=== PATIENT | male | born 1930 | race Caucasian/White ===

== ENCOUNTER 2017-10-14 16:35 | Inpatient (IN) | payer MEDICARE, OTHER ==
[2017-10-14] MEDS ORDERED: LORazepam 2 MG/ML SDV IVPUSH ONE ×2 (22:15→22:34)
[2017-10-14] MEDS ORDERED: LORazepam 2 MG/ML SDV ONE (22:21)
--- NOTE | 2017-10-14 22:26 | EDM.PDOC ---
<Wil Avery - Last Filed: 10/14/17 23:27> ED HPI GENERAL MEDICAL PROBLEM - General Chief Complaint: Upper Extremity Injury/Pain Stated Complaint: [facility] Time Seen by Provider: 10/14/17 17:50 - History of Present Illness INITIAL COMMENTS - FREE TEXT/NARRATIVE: 87-year-old male presents emergency room with a left hand injury. Patient fell while bathing at the assisted living center. He has a few scrapes on his hands but really denies significant discomfort. Patient denies any other pain at this time and he has no other complaints. It was learned after his hand was x-rayed and I was considering sending him back to the assisted living center, that he has fallen 4 times the last week and becoming much more confused. No other information is noted at this time about this change of events over the last week. - Related Data Allergies Allergy/AdvReac Type Severity Reaction Status Date / Time No Known Allergies Allergy Verified 10/14/17 16:41 Home Meds: Home Meds Atenolol 25 mg PO QPM 07/25/14 [History] Hydrochlorothiazide 50 mg PO DAILY 07/25/14 [History] Sertraline HCl 100 mg PO DAILY 07/25/14 [History] Simvastatin [Zocor] 40 mg PO QPM 07/25/14 [History] Acetaminophen [Tylenol] 650 mg PO BID 10/14/17 [History] Apixaban [Eliquis] 2.5 mg PO BID 10/14/17 [History] Aspirin [Ecotrin] 81 mg PO DAILY 10/14/17 [History] Docusate Sodium 100 mg PO BID 10/14/17 [History] Ergocalciferol (Vitamin D2) [Vitamin D2] 50,000 unit PO ASDIRECTED 10/14/17 [ History] Past Medical History Cardiovascular History: Reports: Afib, High Cholesterol, Hypertension, Pacemaker , Other (See Below) Other Cardiovascular History: sick sinus syndrome Genitourinary History: Reports: BPH Endocrine/Metabolic History: Reports: Diabetes, Type II Social & Family History - Tobacco Use Smoking Status *Q: Never Smoker Second Hand Smoke Exposure: No - Alcohol Use Days Per Week of Alcohol Use: 2 Number of Drinks Per Day: 2 Total Drinks Per Week: 4 - Recreational Drug Use Recreational Drug Use: No Review of Systems - Review of Systems Review Of Systems: See Below Constitutional: Denies: Chills, Fever Eyes: Reports: No Symptoms Ears: Reports: No Symptoms, Other (He uses hearing aids) Nose: Reports: No Symptoms Mouth/Throat: Reports: No Symptoms Respiratory: Reports: No Symptoms. Denies: Cough Cardiovascular: Reports: No Symptoms. Denies: Chest Pain GI/Abdominal: Reports: No Symptoms. Denies: Abdominal Pain, Decreased Appetite , Diarrhea, Nausea, Vomiting Genitourinary: Denies: No Symptoms Musculoskeletal: Denies: No Symptoms Skin: Denies: No Symptoms Neurological: Reports: Confusion. Denies: Headache, Tingling, Trouble Speaking , Weakness, Change in Speech Psychiatric: Reports: Confusion ED EXAM, GENERAL - Physical Exam Exam: See Below Exam Limited By: No Limitations General Appearance: Alert, No Apparent Distress Eye Exam: Bilateral Eye: Normal Inspection, PERRL Ears: Normal External Exam, Other (Hearing aids in place) Nose: Normal Inspection, Normal Mucosa Throat/Mouth: Normal Inspection, Normal Lips, Normal Teeth, Normal Gums, Normal Oropharynx, Normal Voice, No Airway Compromise, Other (He is missing some of his teeth but what he has remaining appears to be fairly healthy) Head: Atraumatic, Normocephalic Neck: Normal Inspection, Supple, Non-Tender, Full Range of Motion. No: Lymphadenopathy (L), Lymphadenopathy (R) Respiratory/Chest: No Respiratory Distress, Lungs Clear, Decreased Breath Sounds (Especially in the lung bases). No: Normal Breath Sounds Cardiovascular: Regular Rate, Rhythm, Systolic Murmur (A murmur heard along the left lower sternal border). No: No Edema, No Murmur GI/Abdominal: Normal Bowel Sounds, Soft, No Distention, Tender (He has some vague discomfort in the suprapubic region). No: Guarding, Rigid, Rebound Extremities: Normal Inspection Neurological: Alert EKG INTERPRETATION EKG Date: 10/14/17 Rhythm: Other (Ventricular paced rhythm rate 60) QRS: Other (Ventricular paced rhythm with wide complex QRS) ST-T: Other (Normal ST elevation and depression with a ventricular paced rhythm) QT: Prolonged EKG Interpretation Comments: Abnormal Course - Vital Signs Last Recorded V/S: Last Vital Signs Temp 96.3 F 10/14/17 16:42 Pulse 65 10/14/17 16:42 Resp 20 01/06/18 16:42 BP 130/68 10/14/17 16:42 Pulse Ox 93 L 10/14/17 16:42 - Orders/Labs/Meds Orders: Active Orders 24 hr Category Date Time Status EKG Documentation Completion [RC] STAT Care 10/14/17 20:20 Active Chest 1V Frontal [CR] Stat Exams 10/14/17 20:19 Taken Chest wo Cont [CT] Stat Exams 10/14/17 22:36 Taken Hand Comp Min 3V Lt [CR] Stat Exams 10/14/17 18:40 Taken Head wo Cont [CT] Stat Exams 10/14/17 20:12 Taken KUB [Abdomen 1V Flat] [CR] Stat Exams 10/14/17 20:43 Taken Labs: Laboratory Tests 10/14/17 10/14/17 10/14/17 Range/Units 20:00 20:00 20:00 WBC 6.95 (4.23-9.07) K/mm3 RBC 3.99 L (4.63-6.08) M/mm3 Hgb 13.1 L (13.7-17.5) gm/L Hct 39.5 L (40.1-51.0) % MCV 99.0 H (79.0-92.2) fl MCH 32.8 H (25.7-32.2) pg MCHC 33.2 (32.2-35.5) g/dl RDW Std Deviation 57.1 H (35.1-43.9) fL Plt Count 135 L (163-337) K/mm3 MPV 9.4 (9.4-12.3) fl Neutrophils % (Manual) 60 (40-60) % Band Neutrophils % 0 (0-10) % Lymphocytes % (Manual) 36 (20-40) % Atypical Lymphs % 0 % Monocytes % (Manual) 3 (2-10) % Eosinophils % (Manual) 0 L (0.8-7.0) % Basophils % (Manual) 1 (0.2-1.2) Platelet Estimate Adequate RBC Morph Comment Normal Sodium 140 (136-145) mEq/L Potassium 3.1 L (3.5-5.1) mEq/L Chloride 103 (98-107) mEq/L Carbon Dioxide 27 (21-32) mEq/L Anion Gap 13.1 (5-15) BUN 22 H (7-18) mg/dL Creatinine 1.0 (0.7-1.3) mg/dL Est Cr Clr Drug Dosing 46.82 mL/min Estimated GFR (MDRD) > 60 (>60) mL/min BUN/Creatinine Ratio 22.0 H (14-18) Glucose 116 H (83-115) mg/dL Calcium 8.6 (8.5-10.1) mg/dL Total Bilirubin 1.5 H (0.2-1.0) mg/dL AST 34 (15-37) U/L ALT 20 (16-63) U/L Alkaline Phosphatase 160 H (46-116) U/L Troponin I < 0.017 (0.00-0.056) ng/mL Total Protein 6.9 (6.4-8.2) g/dl Albumin 3.1 L (3.4-5.0) g/dl Globulin 3.8 gm/dL Albumin/Globulin Ratio 0.8 L (1-2) Urine Color (Yellow) Urine Appearance (Clear) Urine pH (5.0-8.0) Ur Specific Gentry (1.005-1.030) Urine Protein (Negative) Urine Glucose (UA) (Negative) Urine Ketones (Negative) Urine Occult Blood (Negative) Urine Nitrite (Negative) Urine Bilirubin (Negative) Urine Urobilinogen (0.2-1.0) Ur Leukocyte Esterase (Negative) Urine RBC (0-5) /hpf Urine WBC (0-5) /hpf Ur Epithelial Cells (0-5) /hpf Urine Bacteria (FEW) /hpf Hyaline Casts (0-5) /lpf Urine Mucus (FEW) /hpf 10/14/17 Range/Units 22:00 WBC (4.23-9.07) K/mm3 RBC (4.63-6.08) M/mm3 Hgb (13.7-17.5) gm/L Hct (40.1-51.0) % MCV (79.0-92.2) fl MCH (25.7-32.2) pg MCHC (32.2-35.5) g/dl RDW Std Deviation (35.1-43.9) fL Plt Count (163-337) K/mm3 MPV (9.4-12.3) fl Neutrophils % (Manual) (40-60) % Band Neutrophils % (0-10) % Lymphocytes % (Manual) (20-40) % Atypical Lymphs % % Monocytes % (Manual) (2-10) % Eosinophils % (Manual) (0.8-7.0) % Basophils % (Manual) (0.2-1.2) Platelet Estimate RBC Morph Comment Sodium (136-145) mEq/L Potassium (3.5-5.1) mEq/L Chloride (98-107) mEq/L Carbon Dioxide (21-32) mEq/L Anion Gap (5-15) BUN (7-18) mg/dL Creatinine (0.7-1.3) mg/dL Est Cr Clr Drug Dosing mL/min Estimated GFR (MDRD) (>60) mL/min BUN/Creatinine Ratio (14-18) Glucose (83-115) mg/dL Calcium (8.5-10.1) mg/dL Total Bilirubin (0.2-1.0) mg/dL AST (15-37) U/L ALT (16-63) U/L Alkaline Phosphatase (46-116) U/L Troponin I (0.00-0.056) ng/mL Total Protein (6.4-8.2) g/dl Albumin (3.4-5.0) g/dl Globulin gm/dL Albumin/Globulin Ratio (1-2) Urine Color Yellow (Yellow) Urine Appearance Clear (Clear) Urine pH 5.5 (5.0-8.0) Ur Specific Gentry 1.020 (1.005-1.030) Urine Protein Negative (Negative) Urine Glucose (UA) Negative (Negative) Urine Ketones Negative (Negative) Urine Occult Blood 2+ H (Negative) Urine Nitrite Negative (Negative) Urine Bilirubin Negative (Negative) Urine Urobilinogen 1.0 (0.2-1.0) Ur Leukocyte Esterase Negative (Negative) Urine RBC 0-5 (0-5) /hpf Urine WBC 0-5 (0-5) /hpf Ur Epithelial Cells 0-5 (0-5) /hpf Urine Bacteria Few (FEW) /hpf Hyaline Casts 0-5 (0-5) /lpf Urine Mucus Not seen (FEW) /hpf Meds: Medications Discontinued Medications Generic Name Dose Route Start Last Admin Trade Name Freq PRN Reason Stop Dose Admin Lorazepam 0.25 mg 10/14/17 22:15 10/14/17 22:19 Ativan IVPUSH 10/14/17 22:16 0.25 mg ONETIME ONE Administration Lorazepam Confirm 10/14/17 22:21 10/14/17 22:20 Ativan Administered 10/14/17 22:22 Not Given Dose 2 mg .ROUTE .STK-MED ONE Lorazepam 0.25 mg 10/14/17 22:34 10/14/17 22:38 Ativan IVPUSH 10/14/17 22:35 0.25 mg ONETIME ONE Administration - Re-Assessments/Exams Free Text/Narrative Re-Assessment/Exam: 10/14/17 22:24 Patient has become agitated this evening here in the emergency room will give him a quarter milligram of Ativan and repeat if needed his hand x-ray is negative for acute fracture or dislocation abdominal x-ray shows no acute changes normal stool in bowel pattern chest x-ray shows multilevel right-sided pleural effusion and marked cardiomegaly troponin negative he is mildly prerenal. 10/14/17 23:27 Analysis is nonsuggestive of infectious process Departure - Departure Disposition: Admitted As Inpatient 64 Clinical Impression: Confusion state, Pleural effusion, right, Cardiomegaly, Multiple falls Contusion of left hand Qualifiers: Encounter type: initial encounter Qualified Code(s): S60.222A - Contusion of left hand, initial encounter Blood in urine Qualifiers: Hematuria type: gross Qualified Code(s): R31.0 - Gross hematuria - Discharge Information Referrals: PCP,Unknown [Primary Care Provider] - Additional Instructions: I spoke to Dr. Houston she will admit the patient for further evaluation and treatment <Gus Lamas - Last Filed: 10/15/17 03:43> Course - Re-Assessments/Exams Free Text/Narrative Re-Assessment/Exam: 10/15/17 03:35 CT of the chest shows a moderate pleural effusion and cardiomegaly but no other acute changes. 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 10/15/17 03:[address] Houston regarding the patient due to his confusion and his multiple falls he is not a candidate to go back to [facility] assisted living. She is willing to admit him to the hospital for further evaluation and treatment and placement. Departure - Departure Time of Disposition: 03:37 Condition: Poor ED Communication - ED Communication Date/Time Date: 10/15/17 Time Called: 03:43 - Discussed Case With (1) Discussed Case With (1): Admitting Provider Person/s Notified (1): Ni Houston (She will admit)
[2017-10-15] MEDS ORDERED: LORazepam 2 MG/ML SDV IVPUSH PRN (04:45)
[2017-10-15] MEDS ORDERED: Sodium Chloride 0.9% 1,000 ML IV SCH (05:00)
--- NOTE | 2017-10-15 09:58 | PCM.HP ---
H&P History of Present Illness - General Date of Service: 10/15/17 Admit Problem/Dx: Admission Diagnosis/Problem Admission Diagnosis/Problem Confusion Source of Information: Provider History Limitations: Reports: No Limitations - History of Present Illness Initial Comments - Free Text/Narative: 87 year old male unknown MS, believed to have a history of dementia unspecified ; he presents with frequent falls with minor injuries LE/UE without fracture. There was no loss of consciousness; he has a cardiac history of sick sinus syndrome with pacemaker placement. He lives in assisted living, evaluation has been initiated to investigate acute mental status change; he may require SNF at [place]. Onset of Symptoms: Reports: Unknown/Unsure Symptom Onset Date: 10/14/17 Duration of Symptoms: Reports: Hour(s):, Getting Worse Location: Reports: Generalized Severity: Moderate Improves with: Reports: Medication Worsens with: Reports: None Associated Symptoms: Reports: Confusion - Related Data Allergies/Adverse Reactions: Allergies Allergy/AdvReac Type Severity Reaction Status Date / Time No Known Allergies Allergy Verified 10/14/17 16:41 Home Medications: Home Meds Atenolol 25 mg PO QPM 07/25/14 [History] Hydrochlorothiazide 50 mg PO DAILY 07/25/14 [History] Sertraline HCl 100 mg PO DAILY 07/25/14 [History] Simvastatin [Zocor] 40 mg PO QPM 07/25/14 [History] Acetaminophen [Tylenol] 650 mg PO BID 10/14/17 [History] Apixaban [Eliquis] 2.5 mg PO BID 10/14/17 [History] Aspirin [Ecotrin] 81 mg PO DAILY 10/14/17 [History] Ergocalciferol (Vitamin D2) [Vitamin D2] 50,000 unit PO ASDIRECTED 10/14/17 [ History] Acetaminophen [Tylenol] 650 mg PO Q4HR PRN 10/15/17 [History] Docusate Sodium 100 mg PO BID 10/15/17 [History] Past Medical History HEENT History: Reports: Hard of Hearing, Impaired Vision Cardiovascular History: Reports: Afib, High Cholesterol, Hypertension, Pacemaker , Other (See Below) Other Cardiovascular History: sick sinus syndrome Genitourinary History: Reports: BPH Endocrine/Metabolic History: Reports: Diabetes, Type II Social & Family History - Family History Family Medical History: Noncontributory - Tobacco Use Smoking Status *Q: Never Smoker Second Hand Smoke Exposure: No - Caffeine Use Caffeine Use: Reports: None - Alcohol Use Days Per Week of Alcohol Use: 2 Number of Drinks Per Day: 2 Total Drinks Per Week: 4 - Recreational Drug Use Recreational Drug Use: No H&P Review of Systems - Review of Systems: Review Of Systems: See Below General: Reports: Weakness HEENT: Reports: No Symptoms Pulmonary: Reports: No Symptoms Cardiovascular: Reports: No Symptoms Gastrointestinal: Reports: No Symptoms Genitourinary: Reports: No Symptoms Musculoskeletal: Reports: No Symptoms Skin: Reports: No Symptoms Psychiatric: Reports: Confusion Neurological: Reports: No Symptoms Hematologic/Lymphatic: Reports: No Symptoms Immunologic: Reports: No Symptoms Exam - Exam Exam: See Below - Vital Signs Vital Signs: Last Vital Signs Temp 36.5 C 10/15/17 07:52 Pulse 59 L 10/15/17 07:53 Resp 18 10/15/17 07:52 BP 123/56 L 10/15/17 07:53 Pulse Ox 98 10/15/17 07:53 Weight: 84.878 kg - Exam Quality Assessment: Supplemental Oxygen, DVT Prophylaxis General: Sedated HEENT: Pupils Equal, Pupils Reactive, PERRLA Neck: Trachea Midline Lungs: Normal Respiratory Effort Cardiovascular: Regular Rate, Regular Rhythm GI/Abdominal Exam: Normal Bowel Sounds, Soft, Non-Tender, No Organomegaly, No Distention (Male) Exam: Deferred Rectal (Males) Exam: Deferred Back Exam: Normal Inspection Extremities: Normal Inspection Skin: Warm Neurological: Cranial Nerves Intact Neuro Extensive - Motor, Sensory, Reflexes: CN II-XII Intact Psychiatric: Other (sedated) - Patient Data Lab Results Last 24 hrs: Laboratory Results - last 24 hr 10/15/17 10/15/17 10/15/17 Range/Units 06:25 06:25 06:30 WBC 6.97 (4.23-9.07) K/mm3 RBC 4.05 L (4.63-6.08) M/mm3 Hgb 13.2 L (13.7-17.5) gm/L Hct 40.7 (40.1-51.0) % MCV 100.5 H (79.0-92.2) fl MCH 32.6 H (25.7-32.2) pg MCHC 32.4 (32.2-35.5) g/dl RDW Std Deviation 58.7 H (35.1-43.9) fL Plt Count 137 L (163-337) K/mm3 MPV 9.4 (9.4-12.3) fl Sodium 142 (136-145) mEq/L Potassium 3.1 L (3.5-5.1) mEq/L Chloride 102 (98-107) mEq/L Carbon Dioxide 29 (21-32) mEq/L Anion Gap 14.1 (5-15) BUN 21 H (7-18) mg/dL Creatinine 1.1 (0.7-1.3) mg/dL Est Cr Clr Drug Dosing 42.56 mL/min Estimated GFR (MDRD) > 60 (>60) mL/min BUN/Creatinine Ratio 19.1 H (14-18) Glucose 105 (83-115) mg/dL Calcium 8.8 (8.5-10.1) mg/dL MRSA (PCR) Negative Result Diagrams: 10/15/17 06:25 10/15/17 06:25 *Q Meaningful Use (ADM) - VTE *Q VTE Criteria *Q: - Stroke *Q Stroke Criteria *Q: - AMI *Q AMI Criteria *Q: - Problem List (1) Blood in urine SNOMED Code(s): 55409328 ICD Code: R31.9 - HEMATURIA, UNSPECIFIED Status: Acute Current Visit: Yes Qualifiers: Hematuria type: gross Qualified Code(s): R31.0 - Gross hematuria (2) Confusion state SNOMED Code(s): 891820576 ICD Code: F44.89 - OTHER DISSOCIATIVE AND CONVERSION DISORDERS Status: Acute Current Visit: Yes (3) Contusion of left hand SNOMED Code(s): 3966952 ICD Code: S60.222A - CONTUSION OF LEFT HAND, INITIAL ENCOUNTER Status: Acute Current Visit: Yes Qualifiers: Encounter type: initial encounter Qualified Code(s): S60.222A - Contusion of left hand, initial encounter (4) Multiple falls SNOMED Code(s): 850044954 ICD Code: R29.6 - REPEATED FALLS Status: Acute Current Visit: Yes (5) Pleural effusion, right SNOMED Code(s): 51848200 ICD Code: J90 - PLEURAL EFFUSION, NOT ELSEWHERE CLASSIFIED Status: Acute Current Visit: Yes (6) Contusion of knee SNOMED Code(s): 11921131 ICD Code: S80.00XA - CONTUSION OF UNSPECIFIED KNEE, INITIAL ENCOUNTER Status: Acute Current Visit: No Problem List Initiated/Reviewed/Updated: Yes Orders Last 24hrs: Active Orders 24 hr Category Date Time Status Patient Status [ADT] Routine ADT 10/15/17 04:08 Active Bedrest [RC] ASDIRECTED Care 10/15/17 04:43 Active Urinary Catheter Assessment [RC] , Care 10/15/17 04:45 Active Soft Diet [DIET] Diet 10/15/17 Breakfast Active LORazepam [Ativan] Med 10/15/17 04:45 Active 0.5 mg IVPUSH Q4H PRN Sodium Chloride 0.9% [Normal Saline] 1,000 ml Med 10/15/17 05:00 Active IV ASDIRECTED Resuscitation Status Routine Resus Stat 10/15/17 04:42 Ordered Medication Orders Sodium Chloride (Normal Saline) 1,000 mls @ 100 mls/hr IV ASDIRECTED LAUREN Last Admin: 10/15/17 06:38 Dose: 100 mls/hr Lorazepam (Ativan) 0.5 mg IVPUSH Q4H PRN PRN Reason: Anxiety Assessment/Plan Comment:: Impression: Confusion, baseline unknown Query dementia Frequent falls of unclear etiology History of SN dysfunction(SSS) s/p PPM Hematuria, Hx of BPH Contusion of UE/LE without fracture s/p fall Right sided pleural effusion Chronic HTN HLD Diabetes Mellitus type II Plan: CTA post circ unable to perform MRA 2D echo MS telemetry Neuro checks Home meds Daily Labs Replace electrolytes DVT/GI prophylaxis SW consult PT/OT consult
--- NOTE | 2017-10-15 12:53 | CR ---
Chest: Portable view of the chest was obtained. Comparison: Prior chest x-ray of 07/27/14. Right sided pleural effusion is seen. Lungs otherwise are clear. Heart is enlarged. Pacemaker is noted. Bony structures are grossly intact. Impression: 1. Cardiomegaly and right-sided pleural effusion. Diagnostic code #3
--- NOTE | 2017-10-15 12:53 | CT ---
Head CT Technique: Multiple axial sections through the brain were obtained. Intravenous contrast was not utilized. Comparison: No prior head CT exam. Findings: Ventricles along with basal cisterns and sulci over the convexities are moderately prominent. Old infarct is noted within the posterior left frontal region extending into the upper left parietal area. Diminished density is noted within portions of the periventricular and subcortical white matter compatible with small vessel ischemic demyelination change. No other abnormal parenchymal densities are seen. No evidence of intracranial hemorrhage. No midline shift or mass effect is seen. Atherosclerotic change noted within the carotid siphon. Soft tissue density within the inferior right maxillary sinuses is partially visualized compatible with retention cyst. No acute calvarial abnormality is seen. Impression: 1. Old infarct and other senescent change. 2. Sinus findings which are felt to be pre-existing and incidental. 3. No definite acute intracranial abnormality is identified. Diagnostic code #2 I agree with preliminary report issued by [facility] ([facility] preliminary report dictated on 10/14/17, 9:50 PM Central Time)
--- NOTE | 2017-10-15 12:53 | CR ---
Abdomen: Supine view of the abdomen was obtained. Comparison: No prior abdominal x-ray. Diffuse degenerative spurring is noted within the spine. Joint space narrowing is noted within the right hip. Bowel gas pattern is normal. Right sided pleural effusion is noted. Impression: 1. Right sided pleural effusion and other incidental findings. Diagnostic code #2
--- NOTE | 2017-10-15 12:53 | CT ---
CT chest Technique: Multiple axial sections through the chest were obtained. Intravenous contrast was not utilized. Comparison: Prior chest x-ray performed earlier on the same day (8:38 PM). Moderately large right sided pleural effusion is seen with compressive atelectasis seen adjacent to the pleural effusion. Slight atelectasis also noted within the left lung base. Lungs otherwise are clear. Heart is markedly enlarged. Coronary artery calcification is seen. Small mediastinal lymph nodes are seen which are felt to be within normal limits. Atherosclerotic calcifications seen within the thoracic aorta and within branch vessels. Degenerative endplate spurring noted within the spine. Old healed right rib deformity is seen from prior fracture. Increased density within the subareolar region of both breasts is seen compatible with incidental gynecomastia. Impression: 1. Marked cardiomegaly. 2. Moderate right sided pleural effusion with atelectasis as noted above. Diagnostic code #3 Agree with preliminary report issued by [facility] ([facility] preliminary report dictated on 10/15/17, 12:43 AM Central Time)
--- NOTE | 2017-10-15 12:54 | CR ---
Left hand: Four views of the left hand were obtained. Comparison: No prior left hand study. Degenerative change is scattered within the DIP and PIP joints. Chondrocalcinosis is noted within the wrist. Chondrocalcinosis is noted within the MCP joints. Vascular calcification is seen. Nothing acute is appreciated. Impression: 1. Degenerative change, chondrocalcinosis and vascular calcification. 2. Nothing acute is identified on left hand study. Diagnostic code #2
[2017-10-15] MEDS: Sodium Chloride 0.45% with KCl 1,000 ML IV SCH (15:36)
[2017-10-15] MEDS ORDERED: Haloperidol Lactate 5 MG/ML SDV IVPUSH PRN (17:02)
[2017-10-16] MEDS: QUEtiapine 25 MG Tab PO SCH ×2 (01:50→22:06)
[2017-10-16] MEDS: Sodium Chloride 0.45% with KCl 1,000 ML IV SCH ×3 (01:50→22:07)
[2017-10-16] MEDS: Apixaban 5 MG Tab PO SCH ×3 (01:50→22:06)
[2017-10-16] MEDS ORDERED: Enoxaparin 30 MG/0.3 ML Syringe SUBCUT SCH (09:00)
[2017-10-16] MEDS: Sertraline 50 MG Tab PO SCH (09:09)
[2017-10-16] MEDS: Aspirin 81 MG Tab.EC PO SCH (09:10)
[2017-10-16] MEDS ORDERED: Sodium Chloride 0.9% 10 ML Syringe FLUSH PRN (09:18)
[2017-10-16] MEDS ORDERED: Iopamidol 755 Mg/ML 100 ML Bottle IVPUSH ONE (09:18)
[2017-10-16] MEDS ORDERED: Sodium Chloride 0.9% 100 ML IV SCH (09:30)
--- NOTE | 2017-10-16 10:17 | CT ---
CT angiogram of neck Technique: Multiple axial sections were obtained through the neck. Intravenous contrast was utilized. Reconstructed images were obtained. Findings: Diffuse calcified plaque is identified within the carotid bulbs and within the proximal internal and external carotid arteries. Evaluation for stenosis is difficult because of these calcifications. Common carotid artery showed no significant stenosis. Other portions of the internal carotid artery show no significant stenosis. Proximal external carotid arteries are felt to be patent. Moderately large right-sided pleural effusion is seen as noted on previous chest CT. Impression: 1. Calcified plaque within the carotid bulbs, proximal internal and external carotid arteries. This calcified plaques makes evaluation by CT angiogram difficult to accurately determine stenosis in these areas of calcification. Other portions of carotid arteries show no significant stenosis. Please correlate if patient's symptoms warrant further evaluation by MR angiogram. Diagnostic code #3
--- NOTE | 2017-10-16 11:39 | PCM.PN ---
- General Info Date of Service: 10/16/17 Functional Status: Reports: Tolerating Diet, Ambulating - Review of Systems General: Reports: Weakness HEENT: Reports: No Symptoms Pulmonary: Reports: No Symptoms Cardiovascular: Reports: No Symptoms Gastrointestinal: Reports: No Symptoms Genitourinary: Reports: No Symptoms Musculoskeletal: Reports: No Symptoms Skin: Reports: No Symptoms Neurological: Reports: Confusion, Gait Disturbance Psychiatric: Reports: Mood Lability - Patient Data Vitals - Most Recent: Last Vital Signs Temp 36.7 C 10/16/17 07:54 Pulse 62 10/16/17 07:54 Resp 17 10/16/17 07:54 BP 143/71 H 10/16/17 07:54 Pulse Ox 96 10/16/17 07:54 Weight - Most Recent: 88.904 kg I&O - Last 24 Hours: Intake & Output 10/15/17 10/16/17 10/16/17 22:59 06:59 14:59 Intake Total 910 1439 0 Output Total 250 325 Balance 660 1114 0 Lab Results Last 24 Hours: Laboratory Results - last 24 hr 10/16/17 Range/Units 05:59 Sodium 141 (136-145) mEq/L Potassium 3.4 L (3.5-5.1) mEq/L Chloride 104 (98-107) mEq/L Carbon Dioxide 27 (21-32) mEq/L Anion Gap 13.4 (5-15) BUN 21 H (7-18) mg/dL Creatinine 1.1 (0.7-1.3) mg/dL Est Cr Clr Drug Dosing 45.53 mL/min Estimated GFR (MDRD) > 60 (>60) mL/min BUN/Creatinine Ratio 19.1 H (14-18) Glucose 99 (83-115) mg/dL Calcium 8.6 (8.5-10.1) mg/dL Magnesium 1.5 L (1.8-2.4) mg/dl Troponin I 0.050 (0.00-0.056) ng/mL C-Reactive Protein 11.3 H* (<1.0) mg/dL Triglycerides 56 (<150) mg/dL Cholesterol 69 (<200) mg/dL LDL Cholesterol Direct 43 (<100) mg/dL HDL Cholesterol 24.0 L (40-59) mg/dL Med Orders - Current: Current Medications Apixaban (Eliquis) 2.5 mg PO BID [facility] Last Admin: 10/16/17 09:10 Dose: 2.5 mg Aspirin (Halfprin) 81 mg PO DAILY [facility] Last Admin: 10/16/17 09:10 Dose: 81 mg Atenolol (Tenormin) 25 mg PO QPM [facility] Haloperidol Lactate (Haldol) 0.5 mg IVPUSH Q4H PRN PRN Reason: Restlessness Potassium Chloride/Sodium Chloride (1/2 Ns With 20 Meq Kcl) 1,000 mls @ 100 mls /hr IV ASDIRECTED [facility] Last Admin: 10/16/17 01:50 Dose: 100 mls/hr Sodium Chloride (Normal Saline) 100 mls @ 80 mls/hr IV ASDIRECTED [facility] Stop: 10/16/17 12:10 Last Admin: 10/16/17 09:36 Dose: 80 mls/hr Lorazepam (Ativan) 0.5 mg IVPUSH Q4H PRN PRN Reason: Anxiety Quetiapine Fumarate (Seroquel) 25 mg PO BEDTIME [facility] Last Admin: 10/16/17 01:50 Dose: Not Given Sertraline HCl (Zoloft) 100 mg PO DAILY [facility] Last Admin: 10/16/17 09:09 Dose: 100 mg Simvastatin (Zocor) 40 mg PO QPM [facility] Sodium Chloride (Saline Flush) 10 ml FLUSH ONETIME PRN PRN Reason: IV FLUSH Stop: 10/16/17 12:00 Last Admin: 10/16/17 09:37 Dose: 10 ml Discontinued Medications Enoxaparin Sodium (Lovenox) 30 mg SUBCUT DAILY [facility] Sodium Chloride (Normal Saline) 1,000 mls @ 100 mls/hr IV ASDIRECTED [facility] Last Admin: 10/15/17 06:38 Dose: 100 mls/hr Iopamidol (Isovue-370 (76%)) 100 ml IVPUSH ONETIME ONE Stop: 10/16/17 09:19 Last Admin: 10/16/17 09:36 Dose: 100 ml Lorazepam (Ativan) 0.25 mg IVPUSH ONETIME ONE Stop: 10/14/17 22:16 Last Admin: 10/14/17 22:19 Dose: 0.25 mg Lorazepam (Ativan) Confirm Administered Dose 2 mg .ROUTE .STK-MED ONE Stop: 10/14/17 22:22 Last Admin: 10/14/17 22:20 Dose: Not Given Lorazepam (Ativan) 0.25 mg IVPUSH ONETIME ONE Stop: 10/14/17 22:35 Last Admin: 10/14/17 22:38 Dose: 0.25 mg - Exam Quality Assessment: DVT Prophylaxis General: Alert, Oriented, Cooperative, No Acute Distress HEENT: Pupils Equal, Pupils Reactive, EOMI Neck: Trachea Midline Lungs: Normal Respiratory Effort, Decreased Breath Sounds Cardiovascular: Regular Rate, Regular Rhythm GI/Abdominal Exam: Normal Bowel Sounds, Soft, Non-Tender, No Organomegaly, No Distention - Problem List & Annotations (1) Blood in urine SNOMED Code(s): 30595091 Code(s): R31.9 - HEMATURIA, UNSPECIFIED Status: Acute Current Visit: Yes Qualifiers: Hematuria type: gross Qualified Code(s): R31.0 - Gross hematuria (2) Confusion state SNOMED Code(s): 375919731 Code(s): F44.89 - OTHER DISSOCIATIVE AND CONVERSION DISORDERS Status: Acute Current Visit: Yes (3) Contusion of left hand SNOMED Code(s): 4936426 Code(s): S60.222A - CONTUSION OF LEFT HAND, INITIAL ENCOUNTER Status: Acute Current Visit: Yes Qualifiers: Encounter type: initial encounter Qualified Code(s): S60.222A - Contusion of left hand, initial encounter (4) Multiple falls SNOMED Code(s): 295198376 Code(s): R29.6 - REPEATED FALLS Status: Acute Current Visit: Yes (5) Pleural effusion, right SNOMED Code(s): 32359973 Code(s): J90 - PLEURAL EFFUSION, NOT ELSEWHERE CLASSIFIED Status: Acute Current Visit: Yes (6) Contusion of knee SNOMED Code(s): 94101448 Code(s): S80.00XA - CONTUSION OF UNSPECIFIED KNEE, INITIAL ENCOUNTER Status : Acute Current Visit: No - Problem List Review Problem List Initiated/Reviewed/Updated: Yes - My Orders Last 24 Hours: My Active Orders 10/15/17 15:30 Sodium Chloride 0.45% with KCl [1/2 NS with 20 mEq KCl] 1,000 ml IV ASDIRECTED 10/15/17 17:02 Haloperidol Lactate [Haldol] 0.5 mg IVPUSH Q4H PRN 10/15/17 17:38 Vital Signs [RC] 03,09,15,21 10/15/17 17:39 Activity as Tolerated [RC] .Routine 10/15/17 21:00 Apixaban [Eliquis] 2.5 mg PO BID QUEtiapine [SEROquel] 25 mg PO BEDTIME 10/16/17 09:00 Consult to Water Systems Designer [CONS] Routine Aspirin [Halfprin] 81 mg PO DAILY Sertraline [Zoloft] 100 mg PO DAILY 10/16/17 09:18 Sodium Chloride 0.9% [Saline Flush] 10 ml FLUSH ONETIME PRN 10/16/17 09:30 Sodium Chloride 0.9% [Normal Saline] 100 ml IV ASDIRECTED 10/16/17 11:00 Consult to Occupational Therapy [OT Evaluation and Treatment] [CONS] Routine Consult to Physical Therapy [PT Evaluation and Treatment] [CONS] Routine 10/16/17 18:00 Atenolol [Tenormin] 25 mg PO QPM Simvastatin [Zocor] 40 mg PO QPM 10/17/17 05:00 BASIC METABOLIC PANEL,BMP [CHEM] DAILY CRP [C-REACTIVE PROTEIN] [CHEM] DAILY LIPID PANEL [CHEM] DAILY MAGNESIUM [CHEM] DAILY 10/18/17 05:00 BASIC METABOLIC PANEL,BMP [CHEM] DAILY CRP [C-REACTIVE PROTEIN] [CHEM] DAILY LIPID PANEL [CHEM] DAILY MAGNESIUM [CHEM] DAILY - Plan Plan:: Impression: Confusion, baseline unknown Query type of dementia Frequent falls of unclear etiology History of SN dysfunction(SSS) s/p PPM Hematuria, Hx of BPH Contusion of UE/LE without fracture s/p fall Right sided pleural effusion Chronic HTN HLD Diabetes Mellitus type II Plan: CTA post circ unable to perform MRA 2D echo--pending Carotid duplex 10/17/17 CT of brain without contrast re: possible CVA MS telemetry Neuro checks Home meds Daily Labs Replace electrolytes DVT/GI prophylaxis SW consult PT/OT consult DC to SNF per PT/OT eval
[2017-10-16] MEDS: Simvastatin 40 MG Tab PO SCH (18:25)
[2017-10-16] MEDS: Atenolol 50 MG Tab PO SCH (18:25)
[2017-10-17] MEDS ORDERED: Acetaminophen 325 MG Tab PO ONE (00:33)
[2017-10-17] MEDS: Sertraline 50 MG Tab PO SCH (08:42)
[2017-10-17] MEDS: Apixaban 5 MG Tab PO SCH ×2 (08:42→21:48)
[2017-10-17] MEDS: Aspirin 81 MG Tab.EC PO SCH (08:43)
[2017-10-17] MEDS: Sodium Chloride 0.45% with KCl 1,000 ML IV SCH ×2 (08:43→18:27)
[2017-10-17] MEDS ORDERED: Acetaminophen 325 MG Tab PO PRN (09:57)
[2017-10-17] MEDS ORDERED: Magnesium Sulfate/Water 2 GM in Premix Bag 1 BAG IV ONE (10:00)
--- NOTE | 2017-10-17 10:00 | PCM.PN ---
- General Info Date of Service: 10/17/17 Admission Dx/Problem (Free Text): Admission Diagnosis/Problem Admission Diagnosis/Problem Confusion "Julian" is seen this morning, resting comfortably in bed. He is arousable but does fall back asleep quickly. He is not sure where he is at but states "I want to go home". He denies complaints of pain or discomfort. Left hand is puffy and swollen, with palp he denies c/o pain to his hand. He is lethargic. Gonsalez cath placed in ED is draining serrano red urine, was flushed/irrigated last night and this morning with clots returned per nursing. Patient has rested well the past 24 hours with no behavioral concerns. Functional Status: Reports: Pain Controlled, Urinating (gonsalez). Denies: Tolerating Diet, Ambulating (not ambulatory with PT yet due to sedation/ lethargy. ) - Review of Systems Pulmonary: Denies: Shortness of Breath (does not appear SOB) Cardiovascular: Denies: Chest Pain (denies when asked) Gastrointestinal: Denies: Abdominal Pain (denies when asked) Musculoskeletal: Reports: Other (swelling to left hand, multiple areas of ecchymosis to hands/forearms in various stages of healing.) Neurological: Reports: Confusion Psychiatric: Reports: Confusion - Patient Data Vitals - Most Recent: Last Vital Signs Temp 98.4 F 10/17/17 08:57 Pulse 64 10/17/17 08:45 Resp 16 10/17/17 08:45 BP 124/67 10/17/17 08:45 Pulse Ox 96 10/17/17 08:45 Weight - Most Recent: 194 lb 4.8 oz I&O - Last 24 Hours: Intake & Output 10/16/17 10/17/17 10/17/17 22:59 06:59 14:59 Intake Total 1345 1221 Output Total 850 300 Balance 495 921 Lab Results Last 24 Hours: Laboratory Results - last 24 hr 10/17/17 10/17/17 Range/Units 06:30 09:48 WBC 6.94 (4.23-9.07) K/mm3 RBC 3.65 L (4.63-6.08) M/mm3 Hgb 12.0 L (13.7-17.5) gm/L Hct 37.4 L (40.1-51.0) % MCV 102.5 H (79.0-92.2) fl MCH 32.9 H (25.7-32.2) pg MCHC 32.1 L (32.2-35.5) g/dl RDW Std Deviation 60.2 H (35.1-43.9) fL Plt Count 116 L (163-337) K/mm3 MPV 9.1 L (9.4-12.3) fl Neut % (Auto) 63.7 (34.0-67.9) % Lymph % (Auto) 26.1 (21.8-53.1) % Posey % (Auto) 8.4 (5.3-12.2) % Eos % (Auto) 1.6 (0.8-7.0) Baso % (Auto) 0.1 (0.1-1.2) % Neut # (Auto) 4.42 (1.78-5.38) K/mm3 Lymph # (Auto) 1.81 (1.32-3.57) K/mm3 Posey # (Auto) 0.58 (0.30-0.82) K/mm3 Eos # (Auto) 0.11 (0.04-0.54) K/mm3 Baso # (Auto) 0.01 (0.01-0.08) K/mm3 Sodium 138 (136-145) mEq/L Potassium 3.9 (3.5-5.1) mEq/L Chloride 103 (98-107) mEq/L Carbon Dioxide 25 (21-32) mEq/L Anion Gap 13.9 (5-15) BUN 22 H (7-18) mg/dL Creatinine 1.0 (0.7-1.3) mg/dL Est Cr Clr Drug Dosing 50.08 mL/min Estimated GFR (MDRD) > 60 (>60) mL/min BUN/Creatinine Ratio 22.0 H (14-18) Glucose 105 (83-115) mg/dL Calcium 8.5 (8.5-10.1) mg/dL Magnesium 1.6 L (1.8-2.4) mg/dl C-Reactive Protein 16.2 H* (<1.0) mg/dL Triglycerides 52 (<150) mg/dL Cholesterol 67 (<200) mg/dL LDL Cholesterol Direct 43 (<100) mg/dL HDL Cholesterol 22.0 L (40-59) mg/dL Med Orders - Current: Current Medications Acetaminophen (Tylenol) 650 mg PO BID [facility] Acetaminophen (Tylenol) 650 mg PO Q4HR PRN PRN Reason: Pain Apixaban (Eliquis) 2.5 mg PO BID [facility] Last Admin: 10/17/17 08:42 Dose: 2.5 mg Aspirin (Halfprin) 81 mg PO DAILY [facility] Last Admin: 10/17/17 08:43 Dose: 81 mg Atenolol (Tenormin) 25 mg PO QPM [facility] Last Admin: 10/16/17 18:25 Dose: 25 mg Ergocalciferol (Vitamin D2) 50,000 units PO ASDIRECTED [facility] Haloperidol Lactate (Haldol) 0.5 mg IVPUSH Q4H PRN PRN Reason: Restlessness Potassium Chloride/Sodium Chloride (1/2 Ns With 20 Meq Kcl) 1,000 mls @ 100 mls /hr IV ASDIRECTED [facility] Last Admin: 10/17/17 08:43 Dose: 100 mls/hr Magnesium Sulfate 2 gm/ Premix 50 mls @ 25 mls/hr IV ONETIME ONE Stop: 10/17/17 11:59 Lorazepam (Ativan) 0.5 mg IVPUSH Q4H PRN PRN Reason: Anxiety Non-Formulary Medication (Docusate Sodium [Docusate Sodium]) 100 mg PO BID [facility] Non-Formulary Medication (Hydrochlorothiazide [Hydrochlorothiazide]) 50 mg PO DAILY [facility] Quetiapine Fumarate (Seroquel) 25 mg PO BEDTIME [facility] Last Admin: 10/16/17 22:06 Dose: 25 mg Sertraline HCl (Zoloft) 100 mg PO DAILY [facility] Last Admin: 10/17/17 08:42 Dose: 100 mg Simvastatin (Zocor) 40 mg PO QPM [facility] Last Admin: 10/16/17 18:25 Dose: 40 mg Discontinued Medications Acetaminophen (Tylenol) 650 mg PO NOW ONE Stop: 10/17/17 00:34 Last Admin: 10/17/17 00:43 Dose: 650 mg Enoxaparin Sodium (Lovenox) 30 mg SUBCUT DAILY [facility] Sodium Chloride (Normal Saline) 1,000 mls @ 100 mls/hr IV ASDIRECTED [facility] Last Admin: 10/15/17 06:38 Dose: 100 mls/hr Sodium Chloride (Normal Saline) 100 mls @ 80 mls/hr IV ASDIRECTED [facility] Stop: 10/16/17 12:10 Last Admin: 10/16/17 09:36 Dose: 80 mls/hr Iopamidol (Isovue-370 (76%)) 100 ml IVPUSH ONETIME ONE Stop: 10/16/17 09:19 Last Admin: 10/16/17 09:36 Dose: 100 ml Lorazepam (Ativan) 0.25 mg IVPUSH ONETIME ONE Stop: 10/14/17 22:16 Last Admin: 10/14/17 22:19 Dose: 0.25 mg Lorazepam (Ativan) Confirm Administered Dose 2 mg .ROUTE .STK-MED ONE Stop: 10/14/17 22:22 Last Admin: 10/14/17 22:20 Dose: Not Given Lorazepam (Ativan) 0.25 mg IVPUSH ONETIME ONE Stop: 10/14/17 22:35 Last Admin: 10/14/17 22:38 Dose: 0.25 mg Sodium Chloride (Saline Flush) 10 ml FLUSH ONETIME PRN PRN Reason: IV FLUSH Stop: 10/16/17 12:00 Last Admin: 10/16/17 09:37 Dose: 10 ml - Exam Quality Assessment: DVT Prophylaxis General: No Acute Distress, Lethargic HEENT: EOMI, Mucous Membr. Moist/[place] Neck: Supple Lungs: Normal Respiratory Effort, Decreased Breath Sounds (bases), Rales (fine to lt base) Cardiovascular: Regular Rate, Regular Rhythm, No Murmurs (grade 2 systolic) GI/Abdominal Exam: Normal Bowel Sounds, Soft, Non-Tender. No: Guarding, Rigid, Rebound, Tender (Male) Exam: Deferred, Other (gonsalez cath draining serrano colored urine with clots present--- after irrigation this clears to pink with minimal clots after irrigation this morning) Extremities: No Pedal Edema, Normal Capillary Refill, Other (left hand with swelling to dorsum of hand and around DIP and PIP joints to all hands. Denies c/ o pain when palpated to dorsum and joints to phalanges. ROM to hand is WNL. ) Neurological: Other (Neuro status is difficult to assess due to lethargy; he is not able to answer where he is at, month or year. He is able to squeeze my hands with 3-4/5 color specialist strength that is = bilat. He is able to lift legs bilaterally off of bed with = strength. He can plantar and dorsiflex ankles bilat against resistance with = strengths 4/5. ) Psy/Mental Status: Alert (but lethargic) - Problem List & Annotations (1) Altered mental status SNOMED Code(s): 024639628 Code(s): R41.82 - ALTERED MENTAL STATUS, UNSPECIFIED Status: Acute Current Visit: Yes Qualifiers: Altered mental status type: disorientation Qualified Code(s): R41.0 - Disorientation, unspecified (2) Blood in urine SNOMED Code(s): 82592511 Code(s): R31.9 - HEMATURIA, UNSPECIFIED Status: Acute Current Visit: Yes Qualifiers: Hematuria type: gross Qualified Code(s): R31.0 - Gross hematuria Annotation/Comment:: traumatic cath insertion (3) Contusion of left hand SNOMED Code(s): 7212826 Code(s): S60.222A - CONTUSION OF LEFT HAND, INITIAL ENCOUNTER Status: Acute Current Visit: Yes Qualifiers: Encounter type: initial encounter Qualified Code(s): S60.222A - Contusion of left hand, initial encounter (4) Multiple falls SNOMED Code(s): 175151237 Code(s): R29.6 - REPEATED FALLS Status: Acute Current Visit: Yes (5) Pleural effusion, right SNOMED Code(s): 10891785 Code(s): J90 - PLEURAL EFFUSION, NOT ELSEWHERE CLASSIFIED Status: Acute Current Visit: Yes - Problem List Review Problem List Initiated/Reviewed/Updated: Yes - My Orders Last 24 Hours: My Active Orders 10/17/17 09:33 CXR [Chest 1V Frontal] [CR] Routine 10/17/17 09:48 PRO B-TYPE NATRIUR PEPT,BNPPRO [CHEM] Stat TROPONIN I [CHEM] Stat 10/17/17 09:57 Acetaminophen [Tylenol] 650 mg PO Q4HR PRN 10/17/17 09:58 FE, TIBC, TRANSFERRIN, FE SAT [CHEM] Routine FOLIC ACID [CHEM] Routine VITAMIN B12 [CHEM] Routine 10/17/17 10:00 Acetaminophen [Tylenol] 650 mg PO BID Ergocalciferol (Vitamin D2) [Vitamin D2] 50,000 units PO ASDIRECTED Magnesium Sulfate/Water [Magnesium Sulfate 2 GM in Water 50 ML] 2 gm Premix Bag 1 bag IV ONETIME 10/17/17 21:00 Docusate Sodium [Docusate Sodium] 100 mg PO BID 10/18/17 09:00 Hydrochlorothiazide [Hydrochlorothiazide] 50 mg PO DAILY - Plan Plan:: Impression/Plan: AMS--Confusion/lethargy---Query if dementia, also with frequent falls over the past month. 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 -Patient became more aggressive and combative in ED per ED notes and nursing, he was given total of 0.5mg of ativan in ED for this. He was then started on PRN ativan, PRN haldol and seroquel 25mg at bedtime by Dr. Houston. As patient continues to be lethargic, no behaviors since admission, these medications will all be discontinued. Patient will be monitored closely. Once sedation clears hopefully he will be more participatory with therapies and cares. -? Sundowning type behaviors by description given from [place] staff and ED staff. Has been stated that family has also reported patient will "get his days and nights mixed up". Frequent falls of unclear etiology -CVA eval as above -PT/OT eval -? SNF placement for rehab stay History of SN dysfunction(SSS) s/p PPM -EKG with paced rhythm in ED -Trop negative in ED Hematuria, Hx of BPH -? traumatic gonsalez cath placement in ED -UA only with hematuria s/p cath -Irrigation/flush of gonsalez with large clots- continue until clear, is starting to clear today Contusion of UE/LE, specifically left hand -without fracture s/p fall, xray of lt hand unremarkable for acute findings. Right sided pleural effusion -Noted on CXR and abdominal xray -Chest CT with cardiomegaly and moderate pleural effusions with atelectasis Chronic HTN--stable HLD Diabetes Mellitus type II--A1C today. Other Admit to MS telemetry Neuro checks Home meds Daily Labs; Replace electrolytes DVT/GI prophylaxis SW consult--? SNF placement pending progress and therapy eval/recommendations-- at this time recommending SNF placement. PT/OT consult PCP is Dr. Stout with [facility] Patient is DNR/DNI code status
[2017-10-17] MEDS: Acetaminophen 325 MG Tab PO SCH ×2 (10:25→21:47)
--- NOTE | 2017-10-17 11:04 | CR ---
Chest: Portable view of the chest was obtained. Comparison: Prior chest CT of 10/14/17 and chest x-ray of 10/14/17. Right sided pleural effusion is seen with right basilar atelectasis. Small left-sided pleural effusion is seen. Pulmonary vessels are felt to be somewhat congested. Heart is enlarged. Pacemaker is noted. Impression: 1. Bilateral pleural effusions larger in size on the right side. Pleural effusion has increased in size on the right side from prior study. 2. Increasing pulmonary vasculature also felt to be present. 3. Other portions of the chest appear stable. Diagnostic code #3
--- NOTE | 2017-10-17 12:28 | PCM.SN ---
- Free Text/Narrative Note: Message left with sonJuan to call back on my cell number for an update on his father as message was relayed from nursing that he would like a call/update today.
--- NOTE | 2017-10-17 14:32 | PCM.SN ---
- Free Text/Narrative Note: Spoke with patient's son, Juan Del Angel, updated him on patient's status, reviewed evaluation findings and workup thus far along with POC.
--- NOTE | 2017-10-17 14:43 | US ---
Carotid ultrasound: Duplex and color flow imaging was obtained of the carotid arteries. Diffuse plaque seen within the carotid bulbs, distal common carotid arteries and origins of the internal and external carotid arteries. Plaque is worse on the left side than on the right side. Plaque is heterogeneous and calcified with irregular surface margins. Technologist's note: Difficult patient, unable to follow directions and unable to hold still or hold breath Velocity measurements Right side: CCA has a peak systolic velocity of 1.00 m/s. ICA has a peak systolic velocity of 1.45 m/s and peak end-diastolic velocity of 0.16 m/s. ECA has a peak systolic velocity of 2.00 m/s. Vertebral artery has a peak systolic velocity of 1.16 m/s. ICA/CCA ratio is 1.5. Left side: CCA has a peak systolic velocity of 1.76 m/s. ICA has a peak systolic velocity of 2.39 m/s and peak end-diastolic velocity of 0.26 m/s. ECA has a peak systolic velocity of 2.00 m/s. Vertebral artery has a peak systolic velocity of 0.55 m/s. ICA/CCA ratio is 1.4. Impression: 1. Diffuse plaque worse on the left side. Elevated velocity measurements within the distal left CCA compatible with proximal CCA stenosis. Stenosis within both internal carotid arteries at the upper limits of 1-49%. 2. Elevated velocity measurements within both external carotid arteries likely representing stenosis around 50%. 3. Plaque shows irregular surface margins. Diagnostic code #3
[2017-10-17] MEDS: Atenolol 50 MG Tab PO SCH (18:21)
[2017-10-17] MEDS: Simvastatin 40 MG Tab PO SCH (18:21)
[2017-10-17] MEDS: Docusate Sodium 100 MG Cap PO SCH (21:48)
--- NOTE | 2017-10-18 07:08 | PCM.PN ---
- General Info Date of Service: 10/18/17 Admission Dx/Problem (Free Text): Admission Diagnosis/Problem Admission Diagnosis/Problem Confusion "Julian" is seen this morning,just finished ambulating with therapies- ambulated 75 ft with therapy. Is awake and alert today. States "I hope I can get out of here soon". Gonsalez cath is present now with pink tinged urine, yesterday was serrano colored so this is slowly improving. ASA is stopped today- he needs to cont on eliquis. VSS. Plan for SNF placement at [facility] per family and SW yesterday. Functional Status: Reports: Pain Controlled, Tolerating Diet, Ambulating (75 ft with PT this am), Urinating, Incentive Spirometry. Denies: New Symptoms - Review of Systems General: Reports: Weakness HEENT: Reports: No Symptoms Pulmonary: Reports: No Symptoms. Denies: Shortness of Breath, Cough Cardiovascular: Reports: No Symptoms. Denies: Chest Pain, Palpitations Gastrointestinal: Reports: No Symptoms. Denies: Abdominal Pain Genitourinary: Reports: Hematuria (in gonsalez cath; slowly improving) Neurological: Reports: Confusion (more awake and alert today; carries conversation today) - Patient Data Vitals - Most Recent: Last Vital Signs Temp 97.7 F 10/18/17 03:39 Pulse 60 10/18/17 03:39 Resp 20 10/18/17 03:39 BP 119/68 10/18/17 03:39 Pulse Ox 99 10/18/17 03:39 Weight - Most Recent: 196 lb 3.2 oz I&O - Last 24 Hours: Intake & Output 10/17/17 10/17/17 10/18/17 14:59 22:59 06:59 Intake Total 0 1691 1266 Output Total 225 300 Balance 0 1466 966 Lab Results Last 24 Hours: Laboratory Results - last 24 hr 10/17/17 10/17/17 10/17/17 Range/Units 06:30 09:48 09:48 WBC 6.94 (4.23-9.07) K/mm3 RBC 3.65 L (4.63-6.08) M/mm3 Hgb 12.0 L (13.7-17.5) gm/L Hct 37.4 L (40.1-51.0) % MCV 102.5 H (79.0-92.2) fl MCH 32.9 H (25.7-32.2) pg MCHC 32.1 L (32.2-35.5) g/dl RDW Std Deviation 60.2 H (35.1-43.9) fL Plt Count 116 L (163-337) K/mm3 MPV 9.1 L (9.4-12.3) fl Neut % (Auto) 63.7 (34.0-67.9) % Lymph % (Auto) 26.1 (21.8-53.1) % [place] % (Auto) 8.4 (5.3-12.2) % Eos % (Auto) 1.6 (0.8-7.0) Baso % (Auto) 0.1 (0.1-1.2) % Neut # (Auto) 4.42 (1.78-5.38) K/mm3 Lymph # (Auto) 1.81 (1.32-3.57) K/mm3 [place] # (Auto) 0.58 (0.30-0.82) K/mm3 Eos # (Auto) 0.11 (0.04-0.54) K/mm3 Baso # (Auto) 0.01 (0.01-0.08) K/mm3 Sodium 138 (136-145) mEq/L Potassium 3.9 (3.5-5.1) mEq/L Chloride 103 (98-107) mEq/L Carbon Dioxide 25 (21-32) mEq/L Anion Gap 13.9 (5-15) BUN 22 H (7-18) mg/dL Creatinine 1.0 (0.7-1.3) mg/dL Est Cr Clr Drug Dosing 50.08 mL/min Estimated GFR (MDRD) > 60 (>60) mL/min BUN/Creatinine Ratio 22.0 H (14-18) Glucose 105 (83-115) mg/dL Hemoglobin A1c (4.50-6.20) % Calcium 8.5 (8.5-10.1) mg/dL Magnesium 1.6 L (1.8-2.4) mg/dl Iron (65-175) ug/dL TIBC (100-400) ug/dL % Saturation (20-55) % Transferrin (202-364) mg/dL Troponin I 0.021 (0.00-0.056) ng/mL C-Reactive Protein 16.2 H* (<1.0) mg/dL NT-Pro-B Natriuret Pep 2438 H (0-450) pg/mL Triglycerides 52 (<150) mg/dL Cholesterol 67 (<200) mg/dL LDL Cholesterol Direct 43 (<100) mg/dL HDL Cholesterol 22.0 L (40-59) mg/dL Vitamin B12 (193-986) pg/ml Folate (8.6-58.9) ng/mL TSH 3rd Generation (0.358-3.74) uIU/mL 10/17/17 10/17/17 10/17/17 Range/Units 09:48 09:48 09:48 WBC (4.23-9.07) K/mm3 RBC (4.63-6.08) M/mm3 Hgb (13.7-17.5) gm/L Hct (40.1-51.0) % MCV (79.0-92.2) fl MCH (25.7-32.2) pg MCHC (32.2-35.5) g/dl RDW Std Deviation (35.1-43.9) fL Plt Count (163-337) K/mm3 MPV (9.4-12.3) fl Neut % (Auto) (34.0-67.9) % Lymph % (Auto) (21.8-53.1) % [place] % (Auto) (5.3-12.2) % Eos % (Auto) (0.8-7.0) Baso % (Auto) (0.1-1.2) % Neut # (Auto) (1.78-5.38) K/mm3 Lymph # (Auto) (1.32-3.57) K/mm3 [place] # (Auto) (0.30-0.82) K/mm3 Eos # (Auto) (0.04-0.54) K/mm3 Baso # (Auto) (0.01-0.08) K/mm3 Sodium (136-145) mEq/L Potassium (3.5-5.1) mEq/L Chloride (98-107) mEq/L Carbon Dioxide (21-32) mEq/L Anion Gap (5-15) BUN (7-18) mg/dL Creatinine (0.7-1.3) mg/dL Est Cr Clr Drug Dosing mL/min Estimated GFR (MDRD) (>60) mL/min BUN/Creatinine Ratio (14-18) Glucose (83-115) mg/dL Hemoglobin A1c 6.00 (4.50-6.20) % Calcium (8.5-10.1) mg/dL Magnesium (1.8-2.4) mg/dl Iron 34 L (65-175) ug/dL TIBC 204 (100-400) ug/dL % Saturation 17 L (20-55) % Transferrin 163 L (202-364) mg/dL Troponin I (0.00-0.056) ng/mL C-Reactive Protein (<1.0) mg/dL NT-Pro-B Natriuret Pep (0-450) pg/mL Triglycerides (<150) mg/dL Cholesterol (<200) mg/dL LDL Cholesterol Direct (<100) mg/dL HDL Cholesterol (40-59) mg/dL Vitamin B12 1558 H (193-986) pg/ml Folate 9.8 (8.6-58.9) ng/mL TSH 3rd Generation 2.932 (0.358-3.74) uIU/mL Med Orders - Current: Current Medications Acetaminophen (Tylenol) 650 mg PO BID [facility] Last Admin: 10/17/17 21:47 Dose: 650 mg Acetaminophen (Tylenol) 650 mg PO Q4H PRN PRN Reason: Pain Apixaban (Eliquis) 2.5 mg PO BID [facility] Last Admin: 10/17/17 21:48 Dose: 2.5 mg Atenolol (Tenormin) 25 mg PO QPM [facility] Last Admin: 10/17/17 18:21 Dose: 25 mg Docusate Sodium (Colace) 100 mg PO BID [facility] Last Admin: 10/17/17 21:48 Dose: 100 mg Ergocalciferol (Vitamin D2) 50,000 units PO Fr@0900 [facility] Furosemide (Lasix) 10 mg IVPUSH NOW ONE Stop: 10/18/17 07:31 Hydrochlorothiazide (Hydrochlorothiazide) 50 mg PO DAILY [facility] Polysaccharide Iron Complex (Ferrex 150) 150 mg PO DAILY [facility] Sertraline HCl (Zoloft) 100 mg PO DAILY [facility] Last Admin: 10/17/17 08:42 Dose: 100 mg Simvastatin (Zocor) 40 mg PO QPM [facility] Last Admin: 10/17/17 18:21 Dose: 40 mg Discontinued Medications Acetaminophen (Tylenol) 650 mg PO NOW ONE Stop: 10/17/17 00:34 Last Admin: 10/17/17 00:43 Dose: 650 mg Aspirin (Halfprin) 81 mg PO DAILY [facility] Last Admin: 10/17/17 08:43 Dose: 81 mg Enoxaparin Sodium (Lovenox) 30 mg SUBCUT DAILY [facility] Haloperidol Lactate (Haldol) 0.5 mg IVPUSH Q4H PRN PRN Reason: Restlessness Sodium Chloride (Normal Saline) 1,000 mls @ 100 mls/hr IV ASDIRECTED [facility] Last Admin: 10/15/17 06:38 Dose: 100 mls/hr Potassium Chloride/Sodium Chloride (1/2 Ns With 20 Meq Kcl) 1,000 mls @ 100 mls /hr IV ASDIRECTED [facility] Last Admin: 10/17/17 18:27 Dose: 100 mls/hr Sodium Chloride (Normal Saline) 100 mls @ 80 mls/hr IV ASDIRECTED [facility] Stop: 10/16/17 12:10 Last Admin: 10/16/17 09:36 Dose: 80 mls/hr Magnesium Sulfate 2 gm/ Premix 50 mls @ 25 mls/hr IV ONETIME ONE Stop: 10/17/17 11:59 Last Admin: 10/17/17 10:23 Dose: 25 mls/hr Iopamidol (Isovue-370 (76%)) 100 ml IVPUSH ONETIME ONE Stop: 10/16/17 09:19 Last Admin: 10/16/17 09:36 Dose: 100 ml Lorazepam (Ativan) 0.25 mg IVPUSH ONETIME ONE Stop: 10/14/17 22:16 Last Admin: 10/14/17 22:19 Dose: 0.25 mg Lorazepam (Ativan) Confirm Administered Dose 2 mg .ROUTE .STK-MED ONE Stop: 10/14/17 22:22 Last Admin: 10/14/17 22:20 Dose: Not Given Lorazepam (Ativan) 0.25 mg IVPUSH ONETIME ONE Stop: 10/14/17 22:35 Last Admin: 10/14/17 22:38 Dose: 0.25 mg Lorazepam (Ativan) 0.5 mg IVPUSH Q4H PRN PRN Reason: Anxiety Quetiapine Fumarate (Seroquel) 25 mg PO BEDTIME [facility] Last Admin: 10/16/17 22:06 Dose: 25 mg Sodium Chloride (Saline Flush) 10 ml FLUSH ONETIME PRN PRN Reason: IV FLUSH Stop: 10/16/17 12:00 Last Admin: 10/16/17 09:37 Dose: 10 ml - Exam Quality Assessment: Supplemental Oxygen (weaning down, down to 1L this am), DVT Prophylaxis General: Alert (more awake and alert than yesterday), No Acute Distress HEENT: Pupils Equal, EOMI, Mucous Membr. Moist/[place] Neck: Supple Lungs: Normal Respiratory Effort, Decreased Breath Sounds (bases) Cardiovascular: Irregular Rhythm GI/Abdominal Exam: Normal Bowel Sounds, Soft, Non-Tender (Male) Exam: Deferred, Other (gonsalez cath, pink tinged urine, much improved from yesterday--continue with flushes every 6 hours, no further clots since yesterday afternoon) Extremities: No Pedal Edema, Normal Capillary Refill, Other (left hand - dorsum of hand with mild amt of swelling, improved from yesterday. Denies c/o pain with palp) Peripheral Pulses: 2+: Radial (L), Radial (R), Dorsalis Pedis (L), Dorsalis Pedis (R) Neurological: No New Focal Deficit Psy/Mental Status: Alert, Normal Affect, Normal Mood, Other (pleasant and appropriate.) - Problem List & Annotations (1) Altered mental status SNOMED Code(s): 344874544 Code(s): R41.82 - ALTERED MENTAL STATUS, UNSPECIFIED Status: Acute Current Visit: Yes Qualifiers: Altered mental status type: disorientation Qualified Code(s): R41.0 - Disorientation, unspecified (2) Blood in urine SNOMED Code(s): 56409644 Code(s): R31.9 - HEMATURIA, UNSPECIFIED Status: Acute Current Visit: Yes Qualifiers: Hematuria type: gross Qualified Code(s): R31.0 - Gross hematuria Annotation/Comment:: traumatic cath insertion (3) Contusion of left hand SNOMED Code(s): 1053494 Code(s): S60.222A - CONTUSION OF LEFT HAND, INITIAL ENCOUNTER Status: Acute Current Visit: Yes Qualifiers: Encounter type: initial encounter Qualified Code(s): S60.222A - Contusion of left hand, initial encounter (4) Multiple falls SNOMED Code(s): 061958943 Code(s): R29.6 - REPEATED FALLS Status: Acute Current Visit: Yes (5) Pleural effusion, right SNOMED Code(s): 88945092 Code(s): J90 - PLEURAL EFFUSION, NOT ELSEWHERE CLASSIFIED Status: Acute Current Visit: Yes - Problem List Review Problem List Initiated/Reviewed/Updated: Yes - My Orders Last 24 Hours: My Active Orders 10/17/17 09:57 Acetaminophen [Tylenol] 650 mg PO Q4H PRN 10/17/17 10:00 Acetaminophen [Tylenol] 650 mg PO BID 10/17/17 10:38 Up to Chair [RC] ASDIRECTED 10/17/17 10:39 MOSHE Hose [Antiembolic Hose] [OM.PC] Routine 10/17/17 10:40 Antiembolic Devices [RC] PER UNIT ROUTINE 10/17/17 15:00 Bladder Irrigation [RC] Q6HR 10/17/17 21:00 Docusate Sodium [Colace] 100 mg PO BID 10/18/17 07:30 Furosemide [Lasix] 10 mg IVPUSH NOW ONE 10/18/17 09:00 Hydrochlorothiazide 50 mg PO DAILY [place] Polysaccharides Complex [Ferrex 150] 150 mg PO DAILY 10/20/17 09:00 Ergocalciferol (Vitamin D2) [Vitamin D2] 50,000 units PO Fr@0900 - Plan Plan:: Impression/Plan: AMS--Confusion/lethargy---Query if dementia, also with frequent falls over the past month. 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 Of note on report that pulmonary htn is worsened compared to prior study of 2010. Recommend f/up with PCP for this as outpatient to discuss. -Unable to perform MRI of brain at this facility due to pacemaker, MRI not compatible. -CVA workup negative -Patient became more aggressive and combative in ED per ED notes and nursing, he was given total of 0.5mg of ativan in ED for this. He was then started on PRN ativan, PRN haldol and seroquel 25mg at bedtime by Dr. [place]. As patient continues to be lethargic, no behaviors since admission, these medications will all be discontinued. Patient will be monitored closely. Once sedation clears hopefully he will be more participatory with therapies and cares. -? Sundowning type behaviors by description given from [place] staff and ED staff. Has been stated that family has also reported patient will "get his days and nights mixed up". *Clarification on prior notes with "confusion" as diagnosis- patient does not/has not had any prior or current mental health diagnosis. This is changed to altered mental status--not associated with mental health diagnosis. Frequent falls of unclear etiology---reports from son yesterday that father has severe spinal stenosis with gait imbalance- likely the cause of falls according to son. He has been seen, evaluated/treated for his spinal stenosis in the past. It is progressive but up to this point has been manageable. -CVA eval as above--negative -PT/OT eval -? SNF placement for rehab stay--family is in agreement to SNF placement at this time. History of SN dysfunction(SSS) s/p PPM---stable, with pacemaker and of no concern at this time. -EKG with paced rhythm in ED--telemetry unchanged and without calls -Trop negative in ED Hematuria, Hx of BPH -? traumatic gonsalez cath placement in ED -UA only with hematuria s/p cath -Irrigation/flush of gonsalez with large clots- continue until clear, is starting to clear today--patient on eliquis and ASA, will hold ASA. -Cont to monitor, once clears will plan to DC gonsalez Contusion of UE/LE, specifically left hand -without fracture s/p fall, xray of lt hand unremarkable for acute findings. -Patient denies c/o pain to the hand. Right sided pleural effusion -Noted on CXR and abdominal xray -Chest CT with cardiomegaly and moderate pleural effusions with atelectasis -BNP 2,000range -Echo with EF of 55-65% Chronic HTN--stable HLD- stable Diabetes Mellitus type II--A1C excellent at 6.0 Other Admit to MS telemetry Neuro checks Home meds Daily Labs; Replace electrolytes PRN. DVT/GI prophylaxis SW consult--? SNF placement pending progress and therapy eval/recommendations-- at this time recommending SNF placement. Family in agreement with SNF at this time per conversation with sonJuan. PT/OT consult PCP is Dr. Stout with [facility] Patient is DNR/DNI code status
[2017-10-18] MEDS ORDERED: Furosemide 20 MG/2 ML VIAL IVPUSH ONE (07:30)
[2017-10-18] MEDS ORDERED: Magnesium Hydroxide 400 MG/5 ML Susp 30 ML Cup PO PRN (07:52)
[2017-10-18] MEDS: Iron Polysaccharides Complex 150 MG Cap PO SCH (08:49)
[2017-10-18] MEDS: Apixaban 5 MG Tab PO SCH ×2 (08:49→20:25)
[2017-10-18] MEDS: Docusate Sodium 100 MG Cap PO SCH ×2 (08:49→20:25)
[2017-10-18] MEDS: Sertraline 50 MG Tab PO SCH (08:50)
[2017-10-18] MEDS: Acetaminophen 325 MG Tab PO SCH ×2 (08:51→20:24)
[2017-10-18] MEDS: Hydrochlorothiazide 25 MG Tab PO SCH (08:52)
[2017-10-18] MEDS: Polyethylene Glycol 3350 Powder 17 GM Packet PO SCH (08:52)
[2017-10-18] MEDS: Simvastatin 40 MG Tab PO SCH (17:16)
[2017-10-18] MEDS: Atenolol 50 MG Tab PO SCH (17:16)
[2017-10-19] MEDS ORDERED: Furosemide 20 MG/2 ML VIAL IVPUSH ONE (06:25)
--- NOTE | 2017-10-19 07:46 | PCM.DCSUM1 ---
Discharge Summary - Hospital Course Free Text/Narrative:: 87-year-old male presents emergency room with a left hand injury. Patient fell while bathing at the assisted living center, [facility]. He has a few scrapes on his hands but really denies significant discomfort. Patient denies any other pain at this time and he has no other complaints. It was learned after his hand was x-rayed and I was considering sending him back to the [facility], that he has fallen 4 times the last week and becoming much more confused. No other information is noted at this time about this change of events over the last week. Xrays of hand done in ED are unremarkable. Hospitalist service is consulted for eval/stroke eval for AMS and frequent falls. Patient is DNR/DNI, PCP is Dr. Stout with [facility] in [place]. - Discharge Data Discharge Date: 10/19/17 (admit date 10/15/17) Discharge Disposition: DC/Tfer to SNF 03 Condition: Fair - Discharge Diagnosis/Problem(s) (1) Altered mental status SNOMED Code(s): 862591823 ICD Code: R41.82 - ALTERED MENTAL STATUS, UNSPECIFIED Status: Acute Current Visit: Yes Qualifiers: Altered mental status type: disorientation Qualified Code(s): R41.0 - Disorientation, unspecified (2) Blood in urine SNOMED Code(s): 13499750 ICD Code: R31.9 - HEMATURIA, UNSPECIFIED Status: Acute Current Visit: Yes Problem Details: traumatic cath insertion Qualifiers: Hematuria type: gross Qualified Code(s): R31.0 - Gross hematuria (3) Contusion of left hand SNOMED Code(s): 5841221 ICD Code: S60.222A - CONTUSION OF LEFT HAND, INITIAL ENCOUNTER Status: Acute Current Visit: Yes Qualifiers: Encounter type: initial encounter Qualified Code(s): S60.222A - Contusion of left hand, initial encounter (4) Multiple falls SNOMED Code(s): 004457163 ICD Code: R29.6 - REPEATED FALLS Status: Acute Current Visit: Yes (5) Pleural effusion, right SNOMED Code(s): 04372977 ICD Code: J90 - PLEURAL EFFUSION, NOT ELSEWHERE CLASSIFIED Status: Acute Current Visit: Yes (6) History of spinal stenosis SNOMED Code(s): 094284029 ICD Code: Z87.39 - PERSONAL HISTORY OF DISEASES OF THE MS SYS AND CONN TISS Status: Chronic Priority: Low Current Visit: Yes (7) Iron deficiency anemia SNOMED Code(s): 71627304 ICD Code: D50.9 - IRON DEFICIENCY ANEMIA, UNSPECIFIED Status: Chronic Priority: Medium Current Visit: Yes Qualifiers: Iron deficiency anemia type: unspecified iron deficiency Qualified Code(s) : D50.9 - Iron deficiency anemia, unspecified - Patient Summary/Data Operative Procedure(s) Performed: None Complications: None Consults: Consultations 10/16/17 09:00 Consult to [employer] [CONS] Routine 10/16/17 11:00 Consult to Occupational Therapy [OT Evaluation and Treatment] [CONS] Routine Consult to Physical Therapy [PT Evaluation and Treatment] [CONS] Routine Labs Pending at D/C: None Recommended Follow-up Testing/Procedures: Physical and occupational therapy to evaluate and treat. Supplemental oxygen to maintain sats >90%; may need at night time. Follow up with PCP within one week of discharge; Dr. Hall to assume care at [facility], Dr. Stout is otherwise PCP. Recommend dementia eval- strongly suspect. Planned Operative Procedure(s) after DC: None Hospital Course: Impression/Plan: AMS--Confusion/lethargy---Query if dementia, also with frequent falls over the past month. 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 Of note on report that pulmonary htn is worsened compared to prior study of 2010. Recommend f/up with PCP for this as outpatient to discuss. -Unable to perform MRI of brain at this facility due to pacemaker, MRI not compatible. -CVA workup negative -Patient became more aggressive and combative in ED per ED notes and nursing, he was given total of 0.5mg of ativan in ED for this. He was then started on PRN ativan, PRN haldol and seroquel 25mg at bedtime by Dr. Houston. As patient continues to be lethargic, no behaviors since admission, these medications will all be discontinued. Patient will be monitored closely. Once sedation clears hopefully he will be more participatory with therapies and cares. -? Sundowning type behaviors [facility]. Has been stated that family has also reported patient will "get his days and nights mixed up". *Clarification on prior notes with "confusion" as diagnosis- patient does not/has not had any prior or current mental health diagnosis. This is changed to altered mental status--not associated with mental health diagnosis. Frequent falls of unclear etiology---reports from son yesterday that father has severe spinal stenosis with gait imbalance- likely the cause of falls according to son. He has been seen, evaluated/treated for his spinal stenosis in the past. It is progressive but up to this point has been manageable. -CVA eval as above--negative -PT/OT eval -? SNF placement for rehab stay--family is in agreement to SNF placement at this time. History of SN dysfunction(SSS) s/p PPM---stable, with pacemaker and of no concern at this time. -EKG with paced rhythm in ED--telemetry unchanged and without calls -Trop negative in ED Hematuria, Hx of BPH -? traumatic gonsalez cath placement in ED -UA only with hematuria s/p cath -Irrigation/flush of gonsalez with large clots- continue until clear, is starting to clear today--patient on eliquis and ASA, will hold ASA. -Cont to monitor, once clears will plan to DC gonsalez Contusion of UE/LE, specifically left hand -without fracture s/p fall, xray of lt hand unremarkable for acute findings. -Patient denies c/o pain to the hand. Right sided pleural effusion -Noted on CXR and abdominal xray -Chest CT with cardiomegaly and moderate pleural effusions with atelectasis -BNP 2,000range -Echo with EF of 55-65% Chronic HTN--stable HLD- stable Diabetes Mellitus type II--A1C excellent at 6.0 Other Admit to [place] telemetry Neuro checks Home meds Daily Labs; Replace electrolytes PRN. DVT/GI prophylaxis SW consult--SNF placement with DC today to [facility]-- at this time therapies are recommending SNF placement. Family in agreement with SNF at this time per conversation with sonJuan. PT/OT consult PCP is Dr. Stout with [facility] Patient is DNR/DNI code status - Patient Instructions Diet: Heart Healthy Diet, Drink 8-10+ Glasses/Day (iron rich foods) Activity: As Tolerated (PT/OT to continue--ambulate TID) Driving: Do Not Drive Showering/Bathing: May Shower Notify Provider of: Fever, Increased Pain, Nausea and/or Vomiting - Discharge Plan Prescriptions/Med Rec: Iron Polysaccharides Complex [Ferrex 150] 150 mg PO DAILY #30 cap Home Medications: Home Meds Atenolol 25 mg PO QPM 07/25/14 [History] Hydrochlorothiazide 50 mg PO DAILY 07/25/14 [History] Sertraline HCl 100 mg PO DAILY 07/25/14 [History] Simvastatin [Zocor] 40 mg PO QPM 07/25/14 [History] Acetaminophen [Tylenol] 650 mg PO BID 10/14/17 [History] Apixaban [Eliquis] 2.5 mg PO BID 10/14/17 [History] Ergocalciferol (Vitamin D2) [Vitamin D2] 50,000 unit PO ASDIRECTED 10/14/17 [ History] Acetaminophen [Tylenol] 650 mg PO Q4HR PRN 10/15/17 [History] Docusate Sodium 100 mg PO BID 10/15/17 [History] Aspirin [Ecotrin] 81 mg PO DAILY #0 10/19/17 [Rx] Iron Polysaccharides Complex [Ferrex 150] 150 mg PO DAILY #30 cap 10/19/17 [Rx] Magnesium Hydroxide [Milk of Magnesia] 30 ml PO BID PRN cup 10/19/17 [Rx] Polyethylene Glycol 3350 [MiraLAX] 17 gm PO DAILY packet 10/19/17 [Rx] Patient Handouts: Fall Prevention in the Home, [id number], Confusion, Iron Deficiency Anemia, Adult, Spinal Stenosis, [id number], Hematuria, Adult Referrals: PCP,Unknown [Primary Care Provider] - - Discharge Summary/Plan Comment DC Time >30 min.: Yes (45 min) - Patient Data Vitals - Most Recent: Last Vital Signs Temp 97.7 F 10/19/17 02:22 Pulse 60 10/19/17 02:22 Resp 17 10/19/17 02:22 BP 122/58 L 10/19/17 02:22 Pulse Ox 96 10/19/17 02:22 Weight - Most Recent: 198 lb I&O - Last 24 hours: Intake & Output 10/18/17 10/19/17 10/19/17 22:59 06:59 14:59 Intake Total 940 200 Output Total 501 650 Balance 439 -450 Lab Results - Last 24 hrs: Laboratory Results - last 24 hr 10/18/17 Range/Units 05:55 WBC 6.98 (4.23-9.07) K/mm3 RBC 3.66 L (4.63-6.08) M/mm3 Hgb 12.1 L (13.7-17.5) gm/L Hct 37.3 L (40.1-51.0) % MCV 101.9 H (79.0-92.2) fl MCH 33.1 H (25.7-32.2) pg MCHC 32.4 (32.2-35.5) g/dl RDW Std Deviation 59.8 H (35.1-43.9) fL Plt Count 131 L (163-337) K/mm3 MPV 9.8 (9.4-12.3) fl Neut % (Auto) 64.3 (34.0-67.9) % Lymph % (Auto) 24.8 (21.8-53.1) % [place] % (Auto) 8.2 (5.3-12.2) % Eos % (Auto) 2.3 (0.8-7.0) Baso % (Auto) 0.3 (0.1-1.2) % Neut # (Auto) 4.49 (1.78-5.38) K/mm3 Lymph # (Auto) 1.73 (1.32-3.57) K/mm3 [place] # (Auto) 0.57 (0.30-0.82) K/mm3 Eos # (Auto) 0.16 (0.04-0.54) K/mm3 Baso # (Auto) 0.02 (0.01-0.08) K/mm3 MIKY Results - Last 24 hrs: Microbiology 10/18/17 18:21 Stool Occult Blood (MIKY) - Final Stool / Feces NEGATIVE OCCULT BLOOD Med Orders - Current: Current Medications Acetaminophen (Tylenol) 650 mg PO BID [facility] Last Admin: 10/18/17 20:24 Dose: 650 mg Acetaminophen (Tylenol) 650 mg PO Q4H PRN PRN Reason: Pain Apixaban (Eliquis) 2.5 mg PO BID [facility] Last Admin: 10/18/17 20:25 Dose: 2.5 mg Atenolol (Tenormin) 25 mg PO QPM [facility] Last Admin: 10/18/17 17:16 Dose: 25 mg Docusate Sodium (Colace) 100 mg PO BID [facility] Last Admin: 10/18/17 20:25 Dose: 100 mg Ergocalciferol (Vitamin D2) 50,000 units PO Fr@0900 [facility] Hydrochlorothiazide (Hydrochlorothiazide) 50 mg PO DAILY [facility] Last Admin: 10/18/17 08:52 Dose: 50 mg Magnesium Hydroxide (Milk Of Magnesia) 30 ml PO BID PRN PRN Reason: Constipation Last Admin: 10/18/17 11:26 Dose: 30 ml Polyethylene Glycol (Miralax) 17 gm PO DAILY [facility] Last Admin: 10/18/17 08:52 Dose: 17 gm Polysaccharide Iron Complex (Ferrex 150) 150 mg PO DAILY [facility] Last Admin: 10/18/17 08:49 Dose: 150 mg Sertraline HCl (Zoloft) 100 mg PO DAILY [facility] Last Admin: 10/18/17 08:50 Dose: 100 mg Simvastatin (Zocor) 40 mg PO QPM [facility] Last Admin: 10/18/17 17:16 Dose: 40 mg Discontinued Medications Acetaminophen (Tylenol) 650 mg PO NOW ONE Stop: 10/17/17 00:34 Last Admin: 10/17/17 00:43 Dose: 650 mg Aspirin (Halfprin) 81 mg PO DAILY [facility] Last Admin: 10/17/17 08:43 Dose: 81 mg Enoxaparin Sodium (Lovenox) 30 mg SUBCUT DAILY [facility] Furosemide (Lasix) 10 mg IVPUSH NOW ONE Stop: 10/18/17 07:31 Last Admin: 10/18/17 08:53 Dose: 10 mg Furosemide (Lasix) 20 mg IVPUSH NOW ONE Stop: 10/19/17 06:26 Last Admin: 10/19/17 06:36 Dose: 20 mg Haloperidol Lactate (Haldol) 0.5 mg IVPUSH Q4H PRN PRN Reason: Restlessness Sodium Chloride (Normal Saline) 1,000 mls @ 100 mls/hr IV ASDIRECTED [facility] Last Admin: 10/15/17 06:38 Dose: 100 mls/hr Potassium Chloride/Sodium Chloride (1/2 Ns With 20 Meq Kcl) 1,000 mls @ 100 mls /hr IV ASDIRECTED [facility] Last Admin: 10/17/17 18:27 Dose: 100 mls/hr Sodium Chloride (Normal Saline) 100 mls @ 80 mls/hr IV ASDIRECTED [facility] Stop: 10/16/17 12:10 Last Admin: 10/16/17 09:36 Dose: 80 mls/hr Magnesium Sulfate 2 gm/ Premix 50 mls @ 25 mls/hr IV ONETIME ONE Stop: 10/17/17 11:59 Last Admin: 10/17/17 10:23 Dose: 25 mls/hr Iopamidol (Isovue-370 (76%)) 100 ml IVPUSH ONETIME ONE Stop: 10/16/17 09:19 Last Admin: 10/16/17 09:36 Dose: 100 ml Lorazepam (Ativan) 0.25 mg IVPUSH ONETIME ONE Stop: 10/14/17 22:16 Last Admin: 10/14/17 22:19 Dose: 0.25 mg Lorazepam (Ativan) Confirm Administered Dose 2 mg .ROUTE .STK-MED ONE Stop: 10/14/17 22:22 Last Admin: 10/14/17 22:20 Dose: Not Given Lorazepam (Ativan) 0.25 mg IVPUSH ONETIME ONE Stop: 10/14/17 22:35 Last Admin: 10/14/17 22:38 Dose: 0.25 mg Lorazepam (Ativan) 0.5 mg IVPUSH Q4H PRN PRN Reason: Anxiety Quetiapine Fumarate (Seroquel) 25 mg PO BEDTIME [facility] Last Admin: 10/16/17 22:06 Dose: 25 mg Sodium Chloride (Saline Flush) 10 ml FLUSH ONETIME PRN PRN Reason: IV FLUSH Stop: 10/16/17 12:00 Last Admin: 10/16/17 09:37 Dose: 10 ml *Q Meaningful Use (DIS) - VTE *Q VTE Criteria *Q: - Stroke *Q Stroke Criteria *Q: - AMI *Q AMI Criteria *Q:
[2017-10-19 08:52] VITALS: BP 102/61
[2017-10-19] MEDS: Docusate Sodium 100 MG Cap PO SCH (09:01)
[2017-10-19] MEDS: Sertraline 50 MG Tab PO SCH (09:02)
[2017-10-19] MEDS: Hydrochlorothiazide 25 MG Tab PO SCH (09:02)
[2017-10-19] MEDS: Iron Polysaccharides Complex 150 MG Cap PO SCH (09:02)
[2017-10-19] MEDS: Acetaminophen 325 MG Tab PO SCH (09:03)
[2017-10-19] MEDS: Apixaban 5 MG Tab PO SCH (09:03)
[2017-10-19] MEDS: Polyethylene Glycol 3350 Powder 17 GM Packet PO SCH (09:05)
--- NOTE | 2017-10-19 12:46 | CR ---
Chest: Two views of the chest were obtained. Comparison: Prior chest x-ray of 10/17/17. Improved aeration of the chest is seen from prior study. Elevated right hemidiaphragm remains. Blunting of the costophrenic angles are seen likely representing small pleural effusions. Pacemaker is noted. Heart is mildly enlarged. Bony structures are grossly intact. Impression: 1. Elevated right hemidiaphragm which is stable. 2. Better aeration of both lungs when compared to prior chest x-ray. 3. Minimal pleural effusion seen bilaterally. Stable cardiomegaly. Diagnostic code #3
[2017-10-20] MEDS ORDERED: Ergocalciferol (Vitamin D2) 50,000 Unit Cap PO SCH (09:00)
== END 2017-10-19 13:02 | DRG 948 ==
LOC: JD.ED 16:35 → JD.MS 10-15 03:45
PROVIDERS: ADMIT Internal Medicine Cardiovascular Disease; ATTEND Internal Medicine Cardiovascular Disease
DX: R41.82 Altered mental status, unspecified (principal); J90 Pleural effusion, not elsewhere classified; S60.222A Contusion of left hand, initial encounter; W18.2XXA Fall in (into) shower or empty bathtub, initial encounter; R41.0 Disorientation, unspecified; Z91.81 History of falling; I51.7 Cardiomegaly; Y92.091 Bathroom in other non-institutional residence as the place of occurrence of the external cause; R31.0 Gross hematuria; R29.6 Repeated falls; S80.00XA Contusion of unspecified knee, initial encounter; Z79.01 Long term (current) use of anticoagulants; E78.5 Hyperlipidemia, unspecified; I10 Essential (primary) hypertension; Z79.82 Long term (current) use of aspirin; Z79.899 Other long term (current) drug therapy; Z66 Do not resuscitate; D50.9 Iron deficiency anemia, unspecified; I48.91 Unspecified atrial fibrillation; E78.00 Pure hypercholesterolemia, unspecified; N40.0 Benign prostatic hyperplasia without lower urinary tract symptoms; E11.9 Type 2 diabetes mellitus without complications; Z95.0 Presence of cardiac pacemaker
CPT/HCPCS: 36415; 51702; 70450; 71045; 71250; 73130; 74018; 80053; 81001; 84484; 85025; 93005; 96374; 99285; J2060 ×2; 51798; 70498; 70498-26; 71046; 71046-26; 80048; 80061; 82272; 82607; 82746; 83036; 83540; 83735; 83880; 84443; 84466; 85027; 86140; 87641; 93010; 93306; 93880; 93880-26; 94760; 94761; 97110-GP; 97116-GP; 97161-GP; 97166-GO; 97530-GO; 97530-GP; A9270-GY; J3475; J3480; J7030; J7040; J7050; Q9967

== ENCOUNTER 2017-10-20 01:00 | Emergency (ER) | payer MEDICARE, OTHER ==
[2017-10-20 01:07] VITALS: BP 111/67
--- NOTE | 2017-10-20 01:34 | EDM.PDOC ---
ED HPI GENERAL MEDICAL PROBLEM - General Chief Complaint: Gastrointestinal Problem Stated Complaint: [facility] Time Seen by Provider: 10/20/17 01:06 Source of Information: Reports: Old Records History Limitations: Reports: Altered Mental Status - History of Present Illness INITIAL COMMENTS - FREE TEXT/NARRATIVE: Medical records indicate that the patient was admitted to this hospital 2014 through yesterday, 10/19/2017 for frequent falls and increased confusion. It is felt that the patient has dementia. He was discharged to [facility]. The patient is now returned to the ED after having 2 bloody bowel movements at the halfway. The patient is on Eliquis for atrial fibrillation. Here in the ED, patient is hemodynamically stable. He is unable to provide any meaningful history. The patient's PCP is Dr. Stout. Generalized Pain Score (Numeric/FACES): 4 - Related Data Allergies Allergy/AdvReac Type Severity Reaction Status Date / Time No Known Allergies Allergy Verified 10/20/17 01:04 Home Meds: Home Meds Atenolol 25 mg PO QPM 07/25/14 [History] Hydrochlorothiazide 50 mg PO DAILY 07/25/14 [History] Sertraline HCl 100 mg PO DAILY 07/25/14 [History] Simvastatin [Zocor] 40 mg PO QPM 07/25/14 [History] Acetaminophen [Tylenol] 650 mg PO BID 10/14/17 [History] Ergocalciferol (Vitamin D2) [Vitamin D2] 50,000 unit PO FR 10/14/17 [History] Acetaminophen [Tylenol] 650 mg PO Q4HR PRN 10/15/17 [History] Docusate Sodium 100 mg PO BID 10/15/17 [History] Iron Polysaccharides Complex [Ferrex 150] 150 mg PO DAILY #30 cap 10/19/17 [Rx] Magnesium Hydroxide [Milk of Magnesia] 30 ml PO BID PRN cup 10/19/17 [Rx] Polyethylene Glycol 3350 [MiraLAX] 17 gm PO DAILY packet 10/19/17 [Rx] Past Medical History HEENT History: Reports: Hard of Hearing, Impaired Vision Other HEENT History: Bilateral hearing aids, Wears glasses Cardiovascular History: Reports: Afib, Arrhythmia (SSS), High Cholesterol, Hypertension Genitourinary History: Reports: BPH Musculoskeletal History: Reports: Back Pain, Chronic (Spinal stenosis) Psychiatric History: Reports: Dementia Endocrine/Metabolic History: Reports: Diabetes, Type II Hematologic History: Reports: Anemia - Past Surgical History Cardiovascular Surgical History: Reports: Pacer Social & Family History - Family History Family Medical History: Noncontributory - Tobacco Use Smoking Status *Q: Never Smoker Second Hand Smoke Exposure: No - Caffeine Use Caffeine Use: Reports: None - Alcohol Use Days Per Week of Alcohol Use: 2 Number of Drinks Per Day: 2 Total Drinks Per Week: 4 - Recreational Drug Use Recreational Drug Use: No - Living Situation & Occupation Living situation: Reports: Extended Care Facility Occupation: Retired ED ROS GENERAL - Review of Systems Review Of Systems: ROS reveals no pertinent complaints other than HPI. ED EXAM, GI/ABD - Physical Exam Exam: See Below Exam Limited By: Altered Mental Status General Appearance: Alert, WD/WN, No Apparent Distress Eyes: Bilateral: Normal Appearance, EOMI Ears: Normal External Exam, Hearing Grossly Normal Nose: Normal Inspection, No Blood Throat/Mouth: Normal Inspection, Normal Lips, Normal Voice, No Airway Compromise Head: Atraumatic, Normocephalic Neck: Normal Inspection, Full Range of Motion Respiratory/Chest: No Respiratory Distress, Lungs Clear, Normal Breath Sounds, No Accessory Muscle Use Cardiovascular: Normal Peripheral Pulses, Regular Rate, Rhythm (paced on monitor ), No Gallop, No JVD, No Murmur, No Rub GI/Abdominal Exam: Normal Bowel Sounds, Soft, Non-Tender, No Organomegaly, No Distention, No Abnormal Bruit, No Mass (Male) Exam: Deferred Rectal (Males) Exam: Normal Rectal Tone, Heme + Stool (grossly bloody, maroon) Back Exam: Normal Inspection, Full Range of Motion, NT Extremities: Normal Inspection, Normal Range of Motion, Normal Capillary Refill , Other (Trace bilateral pretibial edema) Neurological: Alert, Confused Psychiatric: Other (Unable to assess) Skin Exam: Warm, Dry, Intact, Normal Color, Rash ("Heat rash" noted on back) Course - Vital Signs Last Recorded V/S: Last Vital Signs Temp 35.8 C 10/20/17 01:04 Pulse 80 10/20/17 01:04 Resp 19 10/20/17 01:04 BP 111/67 10/20/17 01:04 Pulse Ox 93 L 10/20/17 01:04 - Orders/Labs/Meds Orders: Active Orders 24 hr Category Date Time Status Hemoccult [Fecal Occult Blood Collection] [RC] Care 10/20/17 01:28 Active ASDIRECTED CBC WITH MANUAL DIFF [HEME] Stat Lab 10/20/17 01:15 Results Labs: Laboratory Tests 10/20/17 Range/Units 01:15 WBC 5.33 (4.23-9.07) K/mm3 RBC 3.09 L (4.63-6.08) M/mm3 Hgb 10.3 L (13.7-17.5) gm/L Hct 31.2 L (40.1-51.0) % MCV 101.0 H (79.0-92.2) fl MCH 33.3 H (25.7-32.2) pg MCHC 33.0 (32.2-35.5) g/dl RDW Std Deviation 57.3 H (35.1-43.9) fL Plt Count 164 (163-337) K/mm3 MPV 9.4 (9.4-12.3) fl - Re-Assessments/Exams Free Text/Narrative Re-Assessment/Exam: 10/20/17 01:[address] Benavidez at 01:29. He does not feel that the patient needs to be admitted to the hospital. The patient can have a colonoscopy as an outpatient. 10/20/17 01:52 The patient's H/H has returned as 10.3/31.2. I will return him to [facility] with a referral to follow-up with Dr. Banks as an outpatient, for colonoscopy. Departure - Departure Time of Disposition: 01:53 Disposition: Home, Self-Care 01 Condition: Fair Clinical Impression: Lower GI bleed - Discharge Information Referrals: Devonte Hall MD [Primary Care Provider] - Wil Banks MD [Physician] - Forms: ED Department Discharge Additional Instructions: Mr. Del Angel was seen in the emergency room for a lower GI bleed. Workup in the ER included a CBC and a Hemoccult test. His Hgb/Hct returned as 10.3/31.2. We recommend that his Eliquis and aspirin be discontinued, at least until the cause of his lower GI bleed has been determined. Contact the office of the surgeon Dr. Darren this morning, to arrange for an outpatient colonoscopy. Mr. Del Angel will need to be prepped for the colonoscopy. You should expect continued rectal bleeding for the next couple of days. Return Mr. Del Angel to the ER if his blood pressure becomes low. - My Orders Last 24 Hours: My Active Orders 10/20/17 01:15 CBC WITH MANUAL DIFF [HEME] Stat 10/20/17 01:28 Hemoccult [Fecal Occult Blood Collection] [RC] ASDIRECTED - Assessment/Plan Last 24 Hours: My Active Orders 10/20/17 01:15 CBC WITH MANUAL DIFF [HEME] Stat 10/20/17 01:28 Hemoccult [Fecal Occult Blood Collection] [RC] ASDIRECTED
== END 2017-10-20 03:19 | disposition home or self-care (01) ==
LOC: SUPCPDRO 01:00 → JD.ED 01:00
DX: K92.2 Gastrointestinal hemorrhage, unspecified (principal); I10 Essential (primary) hypertension; E78.00 Pure hypercholesterolemia, unspecified; E11.9 Type 2 diabetes mellitus without complications; F03.90 Unspecified dementia, unspecified severity, without behavioral disturbance, psychotic disturbance, mood disturbance, and anxiety; Z79.899 Other long term (current) drug therapy; K62.5 Hemorrhage of anus and rectum
CPT/HCPCS: 36415; 36430; 85025; 86850; 86900; 86901; 86922; 99285; J7040; P9016; 99283